=== PATIENT | male | born 1965 | race Caucasian/White ===

== ENCOUNTER → 2017-01-24 | Outpatient (CLI) | payer BC ==
[~2017-01-24] VITALS: Ht 180.3 cm; Wt 114.1 kg
[~2017-01-24] MED LIST: PANT40TA PO
[2017-01-24 12:26] VITALS: Ht 180.3 cm; Wt 114.1 kg
[2017-01-24 12:27] VITALS: BP 140/87; PULSE 100; RESP 18; TEMP 97; O2SAT 98
[2017-01-24] MEDS: NORMAL SALINE IV SCH (12:46)
[2017-01-24] MEDS: PROMETHAZINE IV SCH (12:46)
[2017-01-24 13:06] VITALS: RESP 18
== END ==
LOC: INF.THER 12:13
PROVIDERS: ATTEND Family Medicine
DX: A08.4 Viral intestinal infection, unspecified (principal)
CPT/HCPCS: 96365; 96366; J2550; J7030